=== PATIENT | female | born 1960 | race African-American/Black ===

== ENCOUNTER 2023-02-24 17:37 | Emergency (ER) | payer OTHER, SELFPAY ==
--- NOTE | ~2023-02-24 | XR_ITS ---
XR chest 2V DATE: 02/24/2023 19:03 INDICATION: Cough, congestion for 2 weeks. Hypertension. TECHNIQUE: PA and lateral views COMPARISON: None FINDINGS: Normal heart size. Aortic calcification and mild tortuosity. No hilar or mediastinal enlarg ement. No pulmonary infiltrate or consolidation, pleural effusion or pulmonary vascular congestion or pneumo thorax. Dextroscoliosis of the thoracic spine. Status post cholecystectomy. IMPRESSION: No active cardiopulmonary disease Status post cholecystectomy Reviewed, dictated and finalized at location A.
[2023-02-24 17:37] VITALS: BP 143/84; PULSE 80; RESP 18; TEMP 36.4; O2SAT 99
--- NOTE | 2023-02-24 18:05 | PC.NURSE ---
Pt ambulates into ER from home c/o bilateral ear pain and sinus pressure for 2-3 weeks. Pt states she has been dealing with ringing in her bilateral ears which is causing severe pain. States she also has been dealing with sinus pressure across her face. States that she feels congested in her nose. States she has had an occasional cough with yellow phlegm. States that she has been using allergy medications, nasal sprays, and cough medication with no relief. States her symptoms have been ongoing for 2-3 weeks.
--- NOTE | 2023-02-24 18:43 | ECG_ITS ---
Measurements Intervals [place] Rate: 74 P: 36 AR: 173 QRS: 2 QRSD: 82 T: 25 QT: 380 QTc: 422 Interpretive Statements SINUS RHYTHM CONSIDER INFERIOR INFARCT, AGE INDETERMINATE BASELINE ARTIFACT- I, III, AVL ABNORMAL ECG NO PREVIOUS ECG AVAILABLE FOR COMPARISON Electronically Signed On 02-24-2023 20:22:26 CDT by Will Woods D.O.
--- NOTE | 2023-02-24 18:45 | ED.EAR ---
HPI - Ear Problem General Chief complaint: Ear Stated complaint: ringing in ears Time Seen by Provider: 02/24/23 18:32 History of Present Illness HPI Narrative: 62-year-old female with a history of hypertension reports for evaluation of sinus congestion and pressure, ear congestion, chest congestion, cough and shortness of breath for 2 weeks. Pt reports maxillary sinus tenderness and an intermittent productive cough. She denies fevers, vision changes, headaches, history of DVT, leg swelling, history of CHF, focal numbness or weakness, sore throat, chest pain, back pain. Related Data Allergies Allergy/AdvReac Type Severity Reaction Status Date / Time No Known Allergies Allergy Verified 02/24/23 17:39 Review of Systems Review of Systems: CONSTITUTIONAL: Denies fever, chills EYES: Denies visual changes, redness, or discharge. ENT: See HPI CARDIOVASCULAR: Denies chest pain, palpitations, or edema. RESPIRATORY: Denies cough or dyspnea. GASTROINTESTINAL: Denies abdominal pain, nausea, vomiting, or diarrhea. GENITOURINARY: Denies dysuria or hematuria. SKIN: Denies rash or itching. MUSCULOSKELETAL: Denies back pain, joint pain, or myalgia. NEUROLOGIC: Denies headache, numbness, dizziness, or weakness. PSYCHIATRIC: Denies anxiety or depression.65 jn Exam Narrative: GENERAL: Well-appearing, well-nourished, and in no acute distress. Patient resting comfortably in exam bed. She is pleasant and conversational. Speaking in full sentences. HEAD: Normocephalic, atraumatic. EYES: PERRLA and EOMI. ENT: No rhinorrhea or epistaxis. Nares with mucosal congestion and erythema. Mucous membranes moist. Oropharynx without tonsillar hypertrophy exudate or other lesions. Bilateral TMs pearly marquez nonbulging. Serous effusion to R ear. No tenderness with movement of auricles or to mastoid processes NECK: Supple. No adenopathy or masses. CHEST: Clear to auscultation. No respiratory distress. No wheezes rales or rhonchi HEART: Regular rate and rhythm. No murmur heard. Normal peripheral pulses. ABDOMEN: Soft, nontender, nondistended, normal active bowel sounds. EXTREMITIES: Normal range of motion. No edema to BLE. Negative Oneida's bilaterally. No tenderness to calves SKIN: Warm, dry, no rash. NEURO: No focal deficits. Alert and oriented x3. PSYCH: Normal mood and affect. Course Vital Signs Vital signs: Vital Signs Temperature 97.5 F L 02/24/23 17:37 Pulse Rate 80 02/24/23 17:37 Respiratory Rate 18 02/24/23 17:37 Blood Pressure 143/84 H 02/24/23 17:37 Pulse Oximetry 99 02/24/23 17:37 Temperature 97.5 F L 02/24/23 17:37 Pulse Rate 68 02/24/23 21:56 Respiratory Rate 16 02/24/23 21:56 Blood Pressure 178/103 H 02/24/23 21:56 Pulse Oximetry 100 02/24/23 21:56 Medical Decision Making MDM Narrative Medical decision making narrative: 62-year-old female with a history of hypertension reports for evaluation of nasal congestion, sinus pressure, bilateral ear congestion, chest congestion and cough for 2 weeks. Patient did endorse feeling short of breath, therefore labs and imaging obtained. No CP or lower extremity edema on exam. Exam reveals congested and erythematous nasal mucosa, tenderness over maxillary sinuses, R serous otitis media. Lung sounds clear. Trop negative. EKG reveals sinus rhythm, no ischemic changes. BNP not elevated. D dimer elevated at 0.58, however once age adjusted, it falls below the 0.61 threshold. Additionally, she is not tachycardic and her O2 sats are stable at 98-99%, therefore I think PE is unlikely. CBC w/o leukocytosis. CXR w/o pneumonia, pneumothorax, or other acute cardiopulmonary process. Chemistries unremarkable. Covid and flu negative. Pt's symptoms and exam are consistent with sinusitis/bronchitis. Due to patient's duration of symptoms, will treat with Augmentin and Flonase. Advised patient to use Coricidin OTC for decongestant, as she has HTN. Advised follow up with PCP within the next week.
[2023-02-24 19:00] LABS: Basophils Percent Auto 0.6 % (0.2-1.2); Eosinophils Absolute Auto 0.2 K/mm3 (0-0.3); Eosinophils Percent Auto 3.7 % (0-4.4); Hematocrit 36.8 % (37.0-47.0); Immature Granulocyte Absolute 0.02 K/mm3 (0.00-0.031); Immature Granulocyte Percent A 0.3 % (0-0.5); Lymphocytes Absolute Auto 1.65 K/mm3 (0.9-3.2); Lymphocytes Percent Auto 25.7 % (18.3-44.2); Mean Corpuscular HGB Conc 32.6 g/dl (32-36); Mean Corpuscular Volume 88.9 fl (80-100); Mean Platelet Volume 9.1 fl (7.4-10.4); Monocytes Absolute Auto 0.4 K/mm3 (0.1-0.6); Monocytes Percent Auto 6.4 % (2.6-8.5); Neutrophils Absolute Auto 4.1 K/mm3 (1.3-6.7); Neutrophils Percent Auto 63.3 % (45.5-73.1); Platelet Count Result 277 k/mm3 (150-375); Red Blood Count 4.14 M/mm3 (4.2-5.4); Red Cell Distribution Width 14.2 % (11.5-14.5); White Blood Count 6.4 K/mm3 (4.5-10.0)
[2023-02-24 19:10] LABS: Alanine Aminotransferase 24 U/L (6-35); Albumin Level 4.1 g/dL (3.5-5.1); Alkaline Phosphatase 90 U/L (38-126); Anion Gap 4 mmol/L (8-16); Aspartate Amino Transferase 30 U/L (14-36); Bilirubin,Total 0.3 mg/dL (0.2-1.3); Blood Urea Nitrogen 20 mg/dL (7-17); Calcium 9.2 mg/dL (8.4-10.2); Carbon Dioxide 30 mmol/L (22-30); Chloride 105 mmol/L (98-107); Estimated CRCL calculation 7 ml/min; Estimated Glomerular Filt Rate > 60; Glucose 125 mg/dL (65-110); Potassium 3.7 mmol/L (3.4-5.0); Sodium 139 mmol/L (137-145)
[2023-02-24 19:21] LABS: NT Pro B Type Natriuretic Pept 26 pg/mL (19.9-100); Troponin I < 0.012 ng/mL (0.000-0.034)
[2023-02-24 19:26] VITALS: BP 135/92; PULSE 74; RESP 19; O2SAT 98
[2023-02-24 19:30] LABS: D Dimer 0.58 ug/mL (<0.48)
[2023-02-24 21:17] VITALS: PULSE 72; RESP 18; O2SAT 98
[2023-02-24 21:32] LABS: Influenza A QL RT-PCR Negative (Negative); Influenza B QL RT-PCR Negative (Negative); SARS-CoV-2 RNA PCR Negative
[2023-02-24 21:56] VITALS: BP 178/103; PULSE 68; RESP 16; O2SAT 100
== END 2023-02-24 21:58 | disposition home or self-care (01) ==
PROVIDERS: Emergency Provider Physician Assistant; PCP Family Medicine
DX: J40 Bronchitis, not specified as acute or chronic (principal); J01.00 Acute maxillary sinusitis, unspecified; H65.01 Acute serous otitis media, right ear; Z20.822 Contact with and (suspected) exposure to COVID-19; I11.0 Hypertensive heart disease with heart failure; I50.9 Heart failure, unspecified; Z86.718 Personal history of other venous thrombosis and embolism; R94.31 Abnormal electrocardiogram [ECG] [EKG]
CPT/HCPCS: 36415; 71046; 80053; 83880; 84484; 85025; 85380; 87636; 93005; 99284